=== PATIENT | female | born 1985 | race American Indian/Alaskan Native ===

== ENCOUNTER 2018-10-02 19:54 | Emergency (ER) | payer SELFPAY ==
[2018-10-02 20:37] VITALS: BP 147/89
--- NOTE | 2018-10-02 20:38 | Event Note ---
ED Screening Note Date of service: 10/02/18 Time: 20:34 ED Screening Note: This is a 33 y.o. F. that presents to the ER with abdominal pain and dyspareunia x 1 week. LMP 09/12/2018, A5 Denies vaginal discharge, urinary frequency, urgency, or dysuria. This initial assessment/diagnostic orders/clinical plan/treatment(s) is/are subject to change based on patients health status, clinical progression and re- assessment by fellow clinical providers in the ED. Further treatment and workup at subsequent clinical providers discretion. Patient/guardian urged not to elope from the ED as their condition may be serious if not clinically assessed and managed. Initial orders include: Labs Pelvic exam
[2018-10-02 21:05] LABS: Basophils # (Auto) 0.1 K/mm3 (0.0-0.1); Basophils % (Auto) 0.8 % (0.0-1.8); Eosinophils % (Auto) 0.3 % (0.0-4.3); Hematocrit 42.7 % (30.3-42.9); Lymphocytes # (Auto) 1.8 K/mm3 (1.2-5.4); Lymphocytes % (Auto) 20.3 % (13.4-35.0); Mean Corpuscular HGB Conc 33 % (30-34); Mean Corpuscular Volume 87 fl (79-97); Monocytes # (Auto) 0.9 K/mm3 (0.0-0.8); Monocytes % (Auto) 9.8 % (0.0-7.3); Platelet Count 166 K/mm3 (140-440); Red Blood Count 4.92 M/mm3 (3.65-5.03); Red Cell Distribution Width 13.4 % (13.2-15.2)
[2018-10-02 21:16] LABS: Bacteria,Urine 1+ /HPF (Negative); Bilirubin,Urine NEG (Negative); Blood,Urine NEG (Negative); Color,Urine Yellow (Yellow); Mucus,Urine 3+ /HPF; Urobilinogen,Urine < 2.0 mg/dL (<2.0)
[2018-10-02 21:30] LABS: Alanine Aminotransferase 9 units/L (7-56); Albumin 3.3 g/dL (3.9-5); BUN/Creatinine Ratio 10; Blood Urea Nitrogen 8 mg/dL (7-17); Calcium 8.3 mg/dL (8.4-10.2); Hemolysis Index 3
--- NOTE | 2018-10-03 00:09 | Emergency Department Report ---
HPI - General Time Seen by Provider: 10/02/18 20:34 - HPI HPI: This is a 33-year-old female presents complaining of urinary frequency and dysuria for the past week. Patient denies fevers/chills/nausea, vomiting, diarrhea/abdominal pelvic pain ,vaginal discharge, vaginal itching or odor ED Past Medical Hx - Past Medical History Previous Medical History?: No - Surgical History Past Surgical History?: No - Social History Smoking Status: Never Smoker Substance Use Type: Marijuana - Medications Home Medications: Home Medications Medication Instructions Recorded Confirmed Last Taken Type Nitrofurantoin [place]/M-Cryst 100 mg PO Q12HR #14 capsule 10/03/18 Unknown Rx [Macrobid CAP] Phenazopyridine [Pyridium] 100 mg PO TID #14 tab 10/03/18 Unknown Rx ED Review of Systems ROS: Stated complaint: LOWER ABD PAIN Other details as noted in HPI Comment: All other systems reviewed and negative Physical Exam - Physical Exam Vital Signs: Vital Signs 10/02/18 20:33 Temperature 99.1 F Pulse Rate 87 Respiratory 20 Rate Blood Pressure 147/89 O2 Sat by Pulse 100 Oximetry Physical Exam: GENERAL: Alert and oriented x3, no apparent distress, Normal Gait, atraumatic. LUNGS: Symetrical with respiration, No wheezing, no rales or crackles, CTAB. HEART: S1, S2 present, regular rate and rhythm without murmur, no rubs, no gallops. Non tender to palpation ABDOMEN: No organomegaly was noted,Positive bowel sounds, soft, and non- distended. . Nontender to palpation on all Quadrants, NO CVA tenderness. SKIN: Warm and dry, No lesions, No ulceration or induration present. ED Course Vital Signs 10/02/18 20:33 Temperature 99.1 F Pulse Rate 87 Respiratory 20 Rate Blood Pressure 147/89 O2 Sat by Pulse 100 Oximetry ED Medical Decision Making - Lab Data Result diagrams: 10/02/18 20:54 10/02/18 20:54 Laboratory Last Values WBC 8.9 K/mm3 (4.5-11.0) 10/02/18 20:54 RBC 4.92 M/mm3 (3.65-5.03) 10/02/18 20:54 Hgb 14.0 gm/dl (10.1-14.3) 10/02/18 20:54 Hct 42.7 % (30.3-42.9) 10/02/18 20:54 MCV 87 fl (79-97) 10/02/18 20:54 MCH 28 pg (28-32) 10/02/18 20:54 MCHC 33 % (30-34) 10/02/18 20:54 RDW 13.4 % (13.2-15.2) 10/02/18 20:54 Plt Count 166 K/mm3 (140-440) 10/02/18 20:54 Lymph % (Auto) 20.3 % (13.4-35.0) 10/02/18 20:54 [place] % (Auto) 9.8 % (0.0-7.3) H 10/02/18 20:54 Eos % (Auto) 0.3 % (0.0-4.3) 10/02/18 20:54 Baso % (Auto) 0.8 % (0.0-1.8) 10/02/18 20:54 Lymph # 1.8 K/mm3 (1.2-5.4) 10/02/18 20:54 [place] # 0.9 K/mm3 (0.0-0.8) H 10/02/18 20:54 Eos # 0.0 K/mm3 (0.0-0.4) 10/02/18 20:54 Baso # 0.1 K/mm3 (0.0-0.1) 10/02/18 20:54 Seg Neutrophils % 68.8 % (40.0-70.0) 10/02/18 20:54 Seg Neutrophils # 6.1 K/mm3 (1.8-7.7) 10/02/18 20:54 Sodium 139 mmol/L (137-145) 10/02/18 20:54 Potassium 3.6 mmol/L (3.6-5.0) 10/02/18 20:54 Chloride 104.7 mmol/L (98-107) 10/02/18 20:54 Carbon Dioxide 26 mmol/L (22-30) 10/02/18 20:54 12 mmol/L 10/02/18 20:54 BUN 8 mg/dL (7-17) 10/02/18 20:54 0.8 mg/dL (0.7-1.2) 10/02/18 20:54 Estimated GFR > 60 ml/min 10/02/18 20:54 10 % 10/02/18 20:54 Glucose 102 mg/dL (65-100) H 10/02/18 20:54 Calcium 8.3 mg/dL (8.4-10.2) L 10/02/18 20:54 0.30 mg/dL (0.1-1.2) 10/02/18 20:54 AST 12 units/L (5-40) 10/02/18 20:54 ALT 9 units/L (7-56) 10/02/18 20:54 40 units/L (35-129) 10/02/18 20:54 5.9 g/dL (6.3-8.2) L 10/02/18 20:54 3.3 g/dL (3.9-5) L 10/02/18 20:54 1.3 % 10/02/18 20:54 HCG, Qual Negative (Negative) 10/02/18 20:54 Yellow (Yellow) 10/02/18 20:50 Slightly-cloudy (Clear) 10/02/18 20:50 5.0 (5.0-7.0) 10/02/18 20:50 Ur Specific [place] 1.028 (1.003-1.030) 10/02/18 20:50 30 mg/dl mg/dL (Negative) 10/02/18 20:50 Neg mg/dL (Negative) 10/02/18 20:50 20 mg/dL (Negative) 10/02/18 20:50 Neg (Negative) 10/02/18 20:50 Neg (Negative) 10/02/18 20:50 Neg (Negative) 10/02/18 20:50 < 2.0 mg/dL (<2.0) 10/02/18 20:50 Ur Leukocyte Esterase Mod (Negative) 10/02/18 20:50 42.0 /HPF (0.0-6.0) H 10/02/18 20:50 8.0 /HPF (0.0-6.0) 10/02/18 20:50 U Epithel Cells (Auto) 5.0 /HPF (0-13.0) 10/02/18 20:50 1+ /HPF (Negative) 10/02/18 20:50 3+ /HPF 10/02/18 20:50 - Medical Decision Making 31 female presents with urinary tract infection. CBC, CMP, urinalysis urine test completed. Urinalysis shows signs of infection sign discussed findings with the patient. Discussed the patient follow up with [facility] clinic within a week. Vital signs are normal patient is in no acute distress` Critical care attestation.: If time is entered above; I have spent that time in minutes in the direct care of this critically ill patient, excluding procedure time. ED Disposition Clinical Impression: UTI (urinary tract infection), Acute cystitis Disposition: DC- TO HOME OR SELFCARE Is pt being admited?: No Does the pt Need Aspirin: No Condition: Stable Instructions: Abdominal Pain (ED), Urinary Tract Infection in Women (ED) Additional Instructions: Make sure to follow up with the primary care physician as discussed. Take all your medications as you've been prescribed. If you have any worsening symptoms or develop new symptoms please return to ED immediately. Prescriptions: Nitrofurantoin [place]/M-Cryst [Macrobid CAP] 100 mg PO Q12HR #14 capsule Phenazopyridine [Pyridium] 100 mg PO TID #14 tab Referrals: ROM GARCÍA MD [Primary Care Provider] - 3-5 Days [facility] [Outside] - 3-5 Days Forms: Work/School Release Form(ED) Time of Disposition: 00:11
== END 2018-10-03 00:20 | disposition home or self-care (01) ==
LOC: ED 19:54
DX: N30.00 Acute cystitis without hematuria (principal); N39.0 Urinary tract infection, site not specified; F12.10 Cannabis abuse, uncomplicated
CPT/HCPCS: 36415; 80053; 81001; 84703; 85025; 87086

== ENCOUNTER 2018-11-16 10:57 | Emergency (ER) | payer SELFPAY ==
[2018-11-16 12:57] LABS: Basophils % (Auto) 0.6 % (0.0-1.8); Eosinophils # (Auto) 0.1 K/mm3 (0.0-0.4); Eosinophils % (Auto) 1.7 % (0.0-4.3); Hematocrit 33.8 % (30.3-42.9); Lymphocytes # (Auto) 1.2 K/mm3 (1.2-5.4); Lymphocytes % (Auto) 38.5 % (13.4-35.0); Mean Corpuscular HGB Conc 33 % (30-34); Mean Corpuscular Volume 87 fl (79-97); Monocytes # (Auto) 0.3 K/mm3 (0.0-0.8); Monocytes % (Auto) 9.3 % (0.0-7.3); Platelet Count 136 K/mm3 (140-440)
[2018-11-16 13:04] LABS: Alanine Aminotransferase 8 units/L (7-56); Albumin 3.2 g/dL (3.9-5); BUN/Creatinine Ratio 16; Blood Urea Nitrogen 11 mg/dL (7-17); Calcium 8.2 mg/dL (8.4-10.2); Hemolysis Index 6
[2018-11-16 13:21] LABS: Free T4 (Free Thyroxine) 0.9 ng/dL (0.76-1.46)
--- NOTE | 2018-11-16 13:49 | Emergency Department Report ---
<LOGAN GALARZA - Last Filed: 11/17/18 04:05> ED Extremity Problem HPI - General Chief complaint: Extremity Problem,Nontraumatic Stated complaint: SWOLLEN FEET Time Seen by Provider: 11/16/18 11:54 - Related Data Previous Rx's Medication Instructions Recorded Last Taken Type Phenazopyridine [Pyridium] 100 mg PO TID #14 tab 10/03/18 Unknown Rx Furosemide [Lasix] 20 mg PO QDAY #5 tablet 11/16/18 Unknown Rx Nitrofurantoin [place]/M-Cryst 100 mg PO Q12HR #10 capsule 11/16/18 Unknown Rx [Macrobid CAP] Potassium Chloride [K-Dur] 20 meq PO QDAY #5 tablet 11/16/18 Unknown Rx Allergies Allergy/AdvReac Type Severity Reaction Status Date / Time No Known Allergies Allergy Unverified 10/02/18 20:36 ED Past Medical Hx - Medications Home Medications: Home Medications Medication Instructions Recorded Confirmed Last Taken Type Phenazopyridine [Pyridium] 100 mg PO TID #14 tab 10/03/18 Unknown Rx Furosemide [Lasix] 20 mg PO QDAY #5 tablet 11/16/18 Unknown Rx Nitrofurantoin [place]/M-Cryst 100 mg PO Q12HR #10 capsule 11/16/18 Unknown Rx [Macrobid CAP] Potassium Chloride [K-Dur] 20 meq PO QDAY #5 tablet 11/16/18 Unknown Rx ED Medical Decision Making - Lab Data Result diagrams: 11/16/18 12:03 11/16/18 12:03 Lab Results 11/16/18 11/16/18 11/16/18 Range/Units 12:03 12:03 12:03 WBC 3.1 L (4.5-11.0) K/mm3 RBC 3.90 (3.65-5.03) M/mm3 Hgb 11.0 (10.1-14.3) gm/dl Hct 33.8 (30.3-42.9) % MCV 87 (79-97) fl MCH 28 (28-32) pg MCHC 33 (30-34) % RDW 14.0 (13.2-15.2) % Plt Count 136 L (140-440) K/mm3 Lymph % (Auto) 38.5 H (13.4-35.0) % [place] % (Auto) 9.3 H (0.0-7.3) % Eos % (Auto) 1.7 (0.0-4.3) % Baso % (Auto) 0.6 (0.0-1.8) % Lymph # 1.2 (1.2-5.4) K/mm3 [place] # 0.3 (0.0-0.8) K/mm3 Eos # 0.1 (0.0-0.4) K/mm3 Baso # 0.0 (0.0-0.1) K/mm3 Seg Neutrophils % 49.9 (40.0-70.0) % Seg Neutrophils # 1.6 L (1.8-7.7) K/mm3 Sodium 143 (137-145) mmol/L Potassium 3.9 (3.6-5.0) mmol/L Chloride 108.3 H (98-107) mmol/L Carbon Dioxide 27 (22-30) mmol/L Anion Gap 12 mmol/L BUN 11 (7-17) mg/dL Creatinine 0.7 (0.7-1.2) mg/dL Estimated GFR > 60 ml/min BUN/Creatinine Ratio 16 % Glucose 96 (65-100) mg/dL Calcium 8.2 L (8.4-10.2) mg/dL Total Bilirubin < 0.20 (0.1-1.2) mg/dL AST 11 (5-40) units/L ALT 8 (7-56) units/L Alkaline Phosphatase 32 L (35-129) units/L NT-Pro-B Natriuret Pep 43.16 (0-450) pg/mL Total Protein 5.2 L (6.3-8.2) g/dL Albumin 3.2 L (3.9-5) g/dL Albumin/Globulin Ratio 1.6 % TSH 0.880 (0.270-4.200) mlU/mL Free T4 0.90 (0.76-1.46) ng/dL HCG, Qual (Negative) Urine Color (Yellow) Urine Turbidity (Clear) Urine pH (5.0-7.0) Ur Specific [place] (1.003-1.030) Urine Protein (Negative) mg/dL Urine Glucose (UA) (Negative) mg/dL Urine Ketones (Negative) mg/dL Urine Blood (Negative) Urine Nitrite (Negative) Urine Bilirubin (Negative) Urine Urobilinogen (<2.0) mg/dL Ur Leukocyte Esterase (Negative) Urine WBC (Auto) (0.0-6.0) /HPF Urine RBC (Auto) (0.0-6.0) /HPF U Epithel Cells (Auto) (0-13.0) /HPF Urine Mucus /HPF 11/16/18 11/16/18 Range/Units 12:03 13:15 WBC (4.5-11.0) K/mm3 RBC (3.65-5.03) M/mm3 Hgb (10.1-14.3) gm/dl Hct (30.3-42.9) % MCV (79-97) fl MCH (28-32) pg MCHC (30-34) % RDW (13.2-15.2) % Plt Count (140-440) K/mm3 Lymph % (Auto) (13.4-35.0) % [place] % (Auto) (0.0-7.3) % Eos % (Auto) (0.0-4.3) % Baso % (Auto) (0.0-1.8) % Lymph # (1.2-5.4) K/mm3 [place] # (0.0-0.8) K/mm3 Eos # (0.0-0.4) K/mm3 Baso # (0.0-0.1) K/mm3 Seg Neutrophils % (40.0-70.0) % Seg Neutrophils # (1.8-7.7) K/mm3 Sodium (137-145) mmol/L Potassium (3.6-5.0) mmol/L Chloride (98-107) mmol/L Carbon Dioxide (22-30) mmol/L Anion Gap mmol/L BUN (7-17) mg/dL Creatinine (0.7-1.2) mg/dL Estimated GFR ml/min BUN/Creatinine Ratio % Glucose (65-100) mg/dL Calcium (8.4-10.2) mg/dL Total Bilirubin (0.1-1.2) mg/dL AST (5-40) units/L ALT (7-56) units/L Alkaline Phosphatase (35-129) units/L NT-Pro-B Natriuret Pep (0-450) pg/mL Total Protein (6.3-8.2) g/dL Albumin (3.9-5) g/dL Albumin/Globulin Ratio % TSH (0.270-4.200) mlU/mL Free T4 (0.76-1.46) ng/dL HCG, Qual Negative (Negative) Urine Color Yellow (Yellow) Urine Turbidity Clear (Clear) Urine pH 6.0 (5.0-7.0) Ur Specific [place] 1.025 (1.003-1.030) Urine Protein <15 mg/dl (Negative) mg/dL Urine Glucose (UA) Neg (Negative) mg/dL Urine Ketones Neg (Negative) mg/dL Urine Blood Neg (Negative) Urine Nitrite Neg (Negative) Urine Bilirubin Neg (Negative) Urine Urobilinogen < 2.0 (<2.0) mg/dL Ur Leukocyte Esterase Sm (Negative) Urine WBC (Auto) 17.0 H (0.0-6.0) /HPF Urine RBC (Auto) 3.0 (0.0-6.0) /HPF U Epithel Cells (Auto) 4.0 (0-13.0) /HPF Urine Mucus 3+ /HPF - Medical Decision Making pt signed out by Dr. Aceves, pending US results labs are stable, no liver failure, no kidney failure, TSH is normal UA shows evidence of UTI there was not a vascular US technologist available on the weekend to perform a lower extremity US, placed an order for pt to come back on 11/18/18 at [address] Aceves if they were not able to perform US today would pt need to be anticoagulated and she declined, states that pts edema is bilateral will have pt have her US completed on 11/18/18 no signs of PE discussed with pt to elevate the legs and wear compression stockings with frequent standing Dr. aceves prescribed pt lasix, potassium, and macrobid for uti pt was advised to Take the medication as prescribed. please return on 11/18/18 at 8AM to the vascular ultrasound lab to have your ultrasound completed. Follow-up with your doctor or with the doctor/clinic provided. Return if symptoms worsen as indicated by your discharge instructions. ED Disposition Clinical Impression: Bilateral edema of lower extremity UTI (urinary tract infection) Qualifiers: Urinary tract infection type: acute cystitis Hematuria presence: without hematuria Qualified Code(s): N30.00 - Acute cystitis without hematuria Disposition: DC-01 TO HOME OR SELFCARE Is pt being admited?: No Does the pt Need Aspirin: No Condition: Stable Instructions: Urinary Tract Infection in Women (ED), Leg Edema (ED) Additional Instructions: Take the medication as prescribed. please return on 11/18/18 at 8AM to the vascular ultrasound lab to have your ultrasound completed. Follow-up with your doctor or with the doctor/clinic provided. Return if symptoms worsen as indica willis by your discharge instructions. Prescriptions: Potassium Chloride [K-Dur] 20 meq PO QDAY #5 tablet Furosemide [Lasix] 20 mg PO QDAY #5 tablet Nitrofurantoin [place]/M-Cryst [Macrobid CAP] 100 mg PO Q12HR #10 capsule Referrals: PRIMARY CAREMD [Primary Care Provider] - 3-5 Days SHARATH AREVALO MD [Staff Physician] - 3-[address] [facility] [Provider Group] - 3-5 Days Time of Disposition: 19:22 Print Language: JORDANIAN <DANYELL ACEVES - Last Filed: 11/17/18 09:13> ED Extremity Problem HPI - General Source: patient Mode of arrival: Ambulatory Limitations: No Limitations - History of Present Illness Initial comments: 33-year-old female with no significant past medical history presents to the hospital with complaints of bilateral lower extremity swelling 3 days. Patient has been working standing on her feet all day for the last 2 months. She denies recent travel, calf tenderness, leg asymmetry, fever, cough, chest pain, shortness of breath, alcohol abuse, control pill use, or smoking history. She does smoke marijuana. She denies other drug use. ED Review of Systems ROS: Stated complaint: SWOLLEN FEET Other details as noted in HPI Comment: All other systems reviewed and negative ED Past Medical Hx - Past Medical History Previous Medical History?: No - Surgical History Past Surgical History?: No - Social History Smoking Status: Never Smoker Substance Use Type: None ED Physical Exam - General Limitations: No Limitations - Other Other exam information: Gen.: No acute distress Head: Atraumatic Eyes: Normal appearance ENT: Moist mucous membranes Neck: Normal appearance, no posterior midline tenderness, no meningismus Chest: Clear to auscultation bilaterally Cardiovascular: Regular rate and rhythm Abdomen: Normal appearance, soft, nontender, no rebound or guarding, normal bowel sounds Back: Normal appearance, nontender Extremity: 2+ bilateral lower extremity edema with to bilateral feet with edema extending towards knee. tenderness. No leg asymmetry. No warmth or erythema. Neuro: Alert O X 3, clear speech, no focal motor or sensory deficit Psychiatric: Appropriate Skin: No rash ED Course Vital Signs 11/16/18 11/16/18 11/16/18 11:00 15:41 20:00 Temperature 99.0 F 98.4 F 98.6 F Pulse Rate 95 H 53 L 64 Respiratory 16 18 18 Rate Blood Pressure 115/64 Blood Pressure 97/49 127/97 [Left] O2 Sat by Pulse 99 100 100 Oximetry ED Medical Decision Making - Lab Data Result diagrams: 11/16/18 12:03 11/16/18 12:03 - Radiology Data Radiology results: report reviewed CHEST 2 VIEWS INDICATION / CLINICAL INFORMATION: New onset of leg edema. COMPARISON: None available. FINDINGS: SUPPORT DEVICES: None. HEART / MEDIASTINUM: The heart size and pulmonary vasculature are normal. LUNGS / PLEURA: No significant pulmonary or pleural abnormality. No pneumothorax. ADDITIONAL FINDINGS: No significant additional findings. IMPRESSION: No acute findings. - Medical Decision Making Patient does not have any findings of liver failure, kidney failure, heart failure, or nephrotic syndrome. Patient urine with mild infection. Macrobid provided. Dose of Lasix provided - Differential Diagnosis liver failure, kidney failure, venous insufficiency, DVT Critical Care Time: No Critical care attestation.: If time is entered above; I have spent that time in minutes in the direct care of this critically ill patient, excluding procedure time. ED Disposition Is pt being admited?: No Does the pt Need Aspirin: No
[2018-11-16 14:06] LABS: Bilirubin,Urine NEG (Negative); Blood,Urine NEG (Negative); Color,Urine Yellow (Yellow); Mucus,Urine 3+ /HPF; Protein,Urine <15 mg/dL mg/dL (Negative); Urobilinogen,Urine < 2.0 mg/dL (<2.0)
--- NOTE | 2018-11-16 14:12 | XRay Report ---
CHEST 2 VIEWS INDICATION / CLINICAL INFORMATION: New onset of leg edema. COMPARISON: None available. FINDINGS: SUPPORT DEVICES: None. HEART / MEDIASTINUM: The heart size and pulmonary vasculature are normal. LUNGS / PLEURA: No significant pulmonary or pleural abnormality. No pneumothorax. ADDITIONAL FINDINGS: No significant additional findings. IMPRESSION: No acute findings. Signer Name: Milton Fletcher MD Signed: 11/16/2018 2:07 PM Workstation Name: [id number]
[2018-11-16] MEDS ORDERED: FUROSEMIDE 20 MG TAB PO ONE (15:21)
[2018-11-16] MEDS ORDERED: NITROFURANTOIN MONOHYD/M-CRYST 100 MG CAP PO ONE (15:21)
[2018-11-16 20:01] VITALS: BP 127/97
== END 2018-11-16 20:01 | disposition home or self-care (01) ==
LOC: ED 10:57
DX: R60.0 Localized edema (principal); N39.0 Urinary tract infection, site not specified
CPT/HCPCS: 36415; 71046; 80053; 81001; 83880; 84439; 84443; 84703; 85025; 87086